=== PATIENT | female | born 1950 | race Caucasian/White ===

== ENCOUNTER 2016-12-26 16:00 | Emergency (ER) | payer MEDICARE, OTHER ==
--- NOTE | 2016-12-26 16:20 | EDM.PDOC ---
ED HPI GENERAL MEDICAL PROBLEM - General Chief Complaint: Allergic Reaction Stated Complaint: ALLERIC REACTION TO MEDS, [id number] Time Seen by Provider: 12/26/16 16:06 Source of Information: Reports: Patient, RN, RN Notes Reviewed History Limitations: Reports: No Limitations - History of Present Illness INITIAL COMMENTS - FREE TEXT/NARRATIVE: Patient to the ER with c/o allergic reaction to Levaquin. She states she was prescribed the medication yesterday for a sinus infection. Today was the first time taking the medication and the patient feels as if her tongue is larger. She states numbness/tingling to the face and hands bilaterally. She denies difficulty breathing, fever, chills, chest pain, N/V/D. Patient states she feels as if her mouth became very dry as well. She states Levaquin is the only new medication. She is also concerned that her blood pressure is elevated. She admits to neck problems causing numbness and tingling at times, but this was in new places. While visiting with the patient, she states she feels as if she is going to "tip over". Patient was laid back on the bed. Onset: Today, Sudden Location: Reports: Face, Upper Extremity, Left, Upper Extremity, Right - Related Data Allergies Allergy/AdvReac Type Severity Reaction Status Date / Time amoxicillin trihydrate Allergy Diarrhea Verified 07/30/13 11:45 [From Augmentin] bupropion Allergy Cannot Verified 07/30/13 11:45 Remember potassium clavulanate Allergy Diarrhea Verified 07/30/13 11:45 [From Augmentin] Sulfa (Sulfonamide Allergy Cannot Verified 07/30/13 11:45 Antibiotics) Remember Home Meds: Home Meds Aspirin [Children's Aspirin] 81 mg PO 07/30/13 [History] Calcium Carbonate [Tums] 200 mg PO 07/30/13 [History] Calcium Carbonate/Vitamin D3 [Caltrate 600+D] 1 tab PO 07/30/13 [History] Cyclobenzaprine HCl [Cyclobenzaprine HCl] 07/30/13 [History] Loratadine 5 mg PO 07/30/13 [History] Losartan/Hydrochlorothiazide [Hyzaar 100-25] 1 tab PO DAILY 07/30/13 [History] Methylcellulose [Fiber Therapy] 245 gm PO 07/30/13 [History] Multivitamin [Multi-Vitamin Daily] 1 each PO 07/30/13 [History] cycloSPORINE [Restasis] 07/30/13 [History] traZODone HCl [Trazodone HCl] 07/30/13 [History] Social & Family History - Tobacco Use Years of Tobacco use: 40 - Recreational Drug Use Recreational Drug Use: No ED ROS ALLERGIC REACTION - Review of Systems Review Of Systems: ROS reveals no pertinent complaints other than HPI. ED EXAM GENERAL NO PERIP PULSE - Physical Exam Exam: See Below Exam Limited By: No Limitations General Appearance: Alert, WD/WN, Anxious Eye Exam: Bilateral Eye: Normal Inspection, PERRL Ears: Normal External Exam, Hearing Grossly Normal Nose: Normal Inspection Throat/Mouth: Normal Inspection, Normal Lips, Normal Teeth, Normal Gums, Normal Oropharynx, Normal Voice, No Airway Compromise, Other (dry mucous membranes) Head: Atraumatic, Normocephalic Neck: Normal Inspection, Supple, Non-Tender, Full Range of Motion Respiratory/Chest: No Respiratory Distress, Lungs Clear, Normal Breath Sounds, No Accessory Muscle Use, Chest Non-Tender Cardiovascular: Normal Peripheral Pulses, Regular Rate, Rhythm, No Edema, No Gallop, No JVD, No Murmur, No Rub GI/Abdominal: Normal Bowel Sounds, Soft, Non-Tender, No Organomegaly, No Distention, No Abnormal Bruit, No Mass (Female) Exam: Deferred Rectal (Female) Exam: Deferred Back Exam: Normal Inspection, Full Range of Motion Extremities: Normal Inspection, Normal Range of Motion, Non-Tender, No Pedal Edema Neurological: Alert, Oriented, CN II-XII Intact, Normal Cognition, Normal Gait, No Motor/Sensory Deficits Psychiatric: Normal Affect, Anxious Skin Exam: Warm, Dry, Intact, Normal Color, No Rash Lymphatic: No Adenopathy Course - Vital Signs Last Recorded V/S: Last Vital Signs Temp 97.2 F 12/26/16 16:10 Pulse 90 12/26/16 16:10 Resp 16 12/26/16 16:10 BP 179/99 H 12/26/16 16:10 Pulse Ox 100 12/26/16 16:10 - Orders/Labs/Meds Labs: Laboratory Tests 12/26/16 12/26/16 Range/Units 16:38 16:38 WBC 8.2 (5.0-10.0) 10^3/uL RBC 4.49 (4.2-5.4) 10^6/uL Hgb 13.6 D (12.0-16.0) g/dL Hct 39.6 (37.0-47.0) % MCV 88.2 D (80-100) fL MCH 30.3 (27.0-34.0) pg MCHC 34.3 (33.0-35.0) g/dL Plt Count 321 (150-450) 10^3/uL Neut % (Auto) 64.5 (42.2-75.2) % Lymph % (Auto) 26.2 (20.5-50.1) % [place] % (Auto) 7.3 (2-8) % Eos % (Auto) 1.6 (1.0-3.0) % Baso % (Auto) 0.4 (0.0-1.0) % Sodium 129 L (135-145) mmol/L Potassium 3.3 L (3.6-5.0) mmol/L Chloride 90 L (101-111) mmol/L Carbon Dioxide 27.0 (21.0-31.0) mmol/L Anion Gap 15.3 BUN 11 (7-18) mg/dL Creatinine 0.6 (0.6-1.3) mg/dL Est Cr Clr Drug Dosing 75.26 mL/min Estimated GFR (MDRD) > 60 BUN/Creatinine Ratio 18.33 Glucose 91 (74-105) mg/dL Calcium 9.7 (8.4-10.2) mg/dl Total Bilirubin 0.8 (0.2-1.0) mg/dL AST 24 (10-42) IU/L ALT 15 (10-60) IU/L Alkaline Phosphatase 54 (42-121) IU/L Total Protein 7.1 (6.7-8.2) g/dl Albumin 4.2 (3.2-5.5) g/dl Globulin 2.9 Albumin/Globulin Ratio 1.45 Meds: Medications Discontinued Medications Generic Name Dose Route Start Last Admin Trade Name Freq PRN Reason Stop Dose Admin Diphenhydramine HCl 25 mg 12/26/16 16:38 12/26/16 16:45 Benadryl PO 12/26/16 16:39 25 mg ONETIME ONE Administration Lorazepam 0.5 mg 12/26/16 16:38 12/26/16 16:45 Ativan PO 12/26/16 16:39 0.5 mg ONETIME ONE Administration Departure - Departure Time of Disposition: 17:16 Disposition: Home, Self-Care 01 Condition: Fair Clinical Impression: Hypersensitivity Qualifiers: Encounter type: initial encounter Qualified Code(s): T78.40XA - Allergy, unspecified, initial encounter - Discharge Information Forms: ED Department Discharge Additional Instructions: Follow up with your primary care facility for blood pressure management. May take Benadryl every 6 hours as needed for hypersensitivity.
[2016-12-26] MEDS ORDERED: diphenhydrAMINE 25 MG Tab PO ONE (16:38)
[2016-12-26] MEDS ORDERED: LORazepam 0.5 MG Tab PO ONE (16:38)
[2016-12-26 17:02] LABS: CHLORIDE,CL 90 mmol/L (101-111); SODIUM,NA 129 mmol/L (135-145)
== END 2016-12-26 17:41 | disposition home or self-care (01) ==
LOC: DL.ED 16:00
DX: R20.0 Anesthesia of skin (principal); R20.2 Paresthesia of skin; T37.8X5A Adverse effect of other specified systemic anti-infectives and antiparasitics, initial encounter; I10 Essential (primary) hypertension; Z88.2 Allergy status to sulfonamides; Z88.8 Allergy status to other drugs, medicaments and biological substances; Z88.1 Allergy status to other antibiotic agents; Z79.82 Long term (current) use of aspirin; Z79.899 Other long term (current) drug therapy
CPT/HCPCS: 36415; 80053; 85025; 99283; A9270

== ENCOUNTER → 2018-07-25 | Outpatient (CLI) | payer MEDICARE, OTHER | LOC: DL.MRI 08:51 | PROVIDERS: ATTEND Nurse Practitioner | DX: M25.511 Pain in right shoulder (principal); G89.29 Other chronic pain; M25.411 Effusion, right shoulder; M75.101 Unspecified rotator cuff tear or rupture of right shoulder, not specified as traumatic; M75.91 Shoulder lesion, unspecified, right shoulder | CPT/HCPCS: 73221-RT ==

== ENCOUNTER 2021-09-10 14:21 | Emergency (ER) | payer MEDICARE, OTHER ==
[2021-09-10] MEDS ORDERED: Cephalexin 500 MG Cap PO ONE (14:22)
[2021-09-10] MEDS ORDERED: cefTRIAXone 1 GM, Lidocaine 1% 2.1 ML IM ONE ×2 (15:08)
[2021-09-10] MEDS ORDERED: Cephalexin 500 MG Cap ONE (15:30)
== END 2021-09-10 15:41 | disposition home or self-care (01) ==
LOC: DL.ED 14:21
DX: L03.113 Cellulitis of right upper limb (principal); I10 Essential (primary) hypertension; Z88.0 Allergy status to penicillin; K21.9 Gastro-esophageal reflux disease without esophagitis; Z88.2 Allergy status to sulfonamides; Z88.8 Allergy status to other drugs, medicaments and biological substances; Z79.82 Long term (current) use of aspirin; Z79.899 Other long term (current) drug therapy
CPT/HCPCS: 96372; 99283; A9270; J0696

== ENCOUNTER 2022-05-13 18:25 | Emergency (ER) | payer MEDICARE, OTHER | END 2022-05-13 20:00 | disposition home or self-care (01) | LOC: DL.ED 18:25 | DX: H33.22 Serous retinal detachment, left eye (principal); I10 Essential (primary) hypertension; Z87.891 Personal history of nicotine dependence; Z88.0 Allergy status to penicillin; Z88.8 Allergy status to other drugs, medicaments and biological substances; Z88.2 Allergy status to sulfonamides; Z79.82 Long term (current) use of aspirin; Z79.899 Other long term (current) drug therapy | CPT/HCPCS: 99283 ==